=== PATIENT | female | born 1935 | race Caucasian/White ===

== ENCOUNTER 2018-10-01 19:20 | Inpatient (IN) | payer OTHER, MEDICAID ==
[~2018-10-01] VITALS: Ht 157.5 cm; Wt 59.0 kg
[~2018-10-01 19:20] MED LIST: 0.45% NACL 1,000 ML BAG IV ONE; DEXAMETHASONE SOD PHOSPHATE 4 MG/ML VIAL IVP ONE; GLUCAGON,HUMAN RECOMBINANT 1 MG VIAL IV ONE; GLYCOPYRROLATE 0.2 MG/ML VIAL IJ ONE; INDOMETHACIN 50 MG SUPP.RECT RC ONE; MIDAZOLAM HCL 5 MG/5 ML VIAL IVP ONE; NEOSTIGMINE METHYLSULFATE 1 MG/ML, 10 ML VIAL IVP ONE; ONDANSETRON HCL 4 MG/2 ML VIAL IVP ONE; PROPOFOL 200MG/ 20ML VIAL (DIPRIVAN) IV ONE; ROCURONIUM BROMIDE 10 MG/ML (ZEMURON) IV ONE; SEVOFLURANE 15 MIN GAS INH ONE; fentaNYL CITRATE 250 MCG/5 ML AMP IV ONE
[2018-10-01 19:30] VITALS: BP_SYST 143
[2018-10-01 20:00] VITALS: BP_SYST 146
[2018-10-01 21:00] VITALS: BP_SYST 162
[2018-10-01] MEDS ORDERED: SSNOVOLOG SUBCUT (21:25)
[2018-10-01] MEDS ORDERED: LACT1CAP72 PO (21:25)
[2018-10-01] MEDS ORDERED: TORI15 IVP (21:25)
[2018-10-01] MEDS ORDERED: ONDANSETRON HCL 4 MG/2 ML VIAL IVP PRN (21:30)
[2018-10-01 22:00] VITALS: BP_SYST 155
[2018-10-01] MEDS ORDERED: ONDA4VIA52 IVP (22:26)
[2018-10-01] MEDS ORDERED: LEVO750T45 IVPB (22:26)
[2018-10-01] MEDS ORDERED: MEMA5TAB PO (22:26)
[2018-10-01] MEDS ORDERED: METO-442 PO (22:26)
[2018-10-01] MEDS ORDERED: DOCU-144 PO (22:26)
[2018-10-01] MEDS ORDERED: PROI40 IV (22:26)
[2018-10-01] MEDS ORDERED: LEVO25TA2 PO (22:26)
[2018-10-01] MEDS ORDERED: ACET325T53 PO (22:26)
[2018-10-01] MEDS ORDERED: REGL10 IVP (22:26)
[2018-10-01] MEDS ORDERED: GUAI5SYR PO (22:26)
[2018-10-01] MEDS ORDERED: HYDR0.5S2 IVP (22:26)
[2018-10-01] MEDS ORDERED: METR500T IVPB (22:26)
[2018-10-01] MEDS ORDERED: GUAI100S14 PO (22:26)
[2018-10-01] MEDS ORDERED: MAGN2PIG IV (22:26)
[2018-10-01] MEDS ORDERED: OXYB5TAB11 PO (22:26)
[2018-10-01] MEDS ORDERED: PROP10DR2 EACH EYE (22:26)
[2018-10-01] MEDS ORDERED: LISI-600 PO (22:26)
[2018-10-01] MEDS ORDERED: HYDR-4272 PO (22:26)
[2018-10-01] MEDS: PANTOPRAZOLE SODIUM 40 MG/VIAL (PROTONIX) IVP SCH (22:31)
[2018-10-01] MEDS: KCL 20 mEq in 0.45% NS 1000 mL 1,000 ML IV SCH (22:32)
[2018-10-01] MEDS ORDERED: PANTOPRAZOLE SODIUM 40 MG/VIAL (PROTONIX) ONE (22:36)
[2018-10-01 23:00] VITALS: BP_SYST 161
[2018-10-02] VITALS (26 sets, daily range): BP systolic 75–179
[2018-10-02] MEDS ORDERED: CAT.1 PO (00:07)
[2018-10-02] MEDS ORDERED: hydrALAZINE HCL 20 MG/ML VIAL IVP PRN (01:00)
[2018-10-02] MEDS ORDERED: hydrALAZINE HCL 20 MG/ML VIAL ONE ×2 (01:00→11:37)
[2018-10-02 06:34] LABS: INR 1.4 (0.8-1.2); PROTHROMBIN TIME 14.3 SECS (9.5-12.5)
[2018-10-02 06:41] LABS: BASOPHILS % (AUTO) 0.1 % (0.0-2.0); EOSINOPHILS # (AUTO) 0.3 K/uL (0.0-0.4); EOSINOPHILS % (AUTO) 2.9 % (0.0-4.0); HEMATOCRIT 33.7 % (36-48); HEMOGLOBIN 10.9 g/dL (12.0-16.0); LYMPHOCYTES # (AUTO) 0.7 K/uL (1.0-5.5); LYMPHOCYTES % (AUTO) 7.8 % (20.5-51.5); MEAN CORPUSCULAR HEMOGLOBIN 28 pg (27-31); MEAN CORPUSCULAR HGB CONC 32 % (32-36); MEAN CORPUSCULAR VOLUME 88 fL (79.0-98.0); MONOCYTES # (AUTO) 0.8 K/uL (0.0-1.0); MONOCYTES % (AUTO) 8.9 % (1.7-9.3); NEUTROPHILS # (AUTO) 6.8 K/uL (1.8-7.7); NEUTROPHILS % (AUTO) 80.3 % (40.0-70.0); PLATELET COUNT (AUTO) 257 K/uL (130-430); RED BLOOD CELL COUNT(AUTO) 3.85 MIL/uL (4.2-6.2); RED CELL DISTRIBUTION WIDTH 13.3 % (9.0-15.0); WHITE BLOOD COUNT (AUTO) 8.6 K/uL (4.8-10.8)
[2018-10-02 06:42] LABS: ALANINE AMINOTRANSFERASE 31 U/L (12-78); ALBUMIN 2.1 g/dL (3.4-4.8); ANION GAP 6 (5-15); ASPARTATE AMINOTRANSFERASE 27 U/L (10-37); CALCIUM 7.9 mg/dL (8.4-11.0); CHLORIDE 106 mmol/L (98-107); CREATININE 0.96 mg/dL (0.55-1.30); GLUCOSE 87 mg/dL (70-99); LIPASE 877 U/L (73-393); PHOSPHORUS 2.2 mg/dL (2.7-4.5); POTASSIUM 3.8 mmol/L (3.5-5.1); SODIUM SERUM 134 mmol/L (136-145); TOTAL BILIRUBIN 0.9 mg/dL (0.0-1.0); UREA NITROGEN, BLOOD 35 mg/dL (8-21)
[2018-10-02] MEDS ORDERED: INDOMETHACIN 50 MG SUPP.RECT RC ONE (08:30)
[2018-10-02] MEDS ORDERED: IOHEXOL 50 ML IV ONE (08:51)
[2018-10-02] MEDS: PANTOPRAZOLE SODIUM 40 MG/VIAL (PROTONIX) IVP SCH ×2 (09:00→20:31)
[2018-10-02] MEDS ORDERED: 0.45% NACL 1,000 ML IV SCH (10:51)
[2018-10-02] MEDS ORDERED: MEPERIDINE HCL/PF 50 MG/ML AMP IVP PRN ×2 (11:00)
[2018-10-02] MEDS ORDERED: METOCLOPRAMIDE HCL 10 MG/2 ML VIAL IVP PRN (11:00)
[2018-10-02] MEDS ORDERED: MEPERIDINE HCL/PF 25 MG/ML DISP.SYRIN IVP PRN (11:00)
[2018-10-02] MEDS ORDERED: NALOXONE HCL 0.4 MG/ML AMP (NARCAN) ONE (11:35)
[2018-10-02] MEDS ORDERED: LABETALOL 100 MG/ 20ML VIAL ONE (11:47)
[2018-10-02] MEDS ORDERED: ATROPINE SULFATE 1 MG/10 ML SYRINGE IVP ONE ×2 (12:30→14:03)
[2018-10-02] MEDS: LR 1,000 ML IV SCH ×2 (13:00→20:25)
[2018-10-02] MEDS ORDERED: NS 500 ML IV ONE (13:00)
[2018-10-02] MEDS: INSULIN REGULAR, HUMAN 100 UNITS/ML, 10 ML VIAL (novoLIN R) SUBCUT PRN (13:32)
[2018-10-02] MEDS ORDERED: NOREPINEPHRINE BITARTRATE 4 MG in NS 246 ML IV PRN (13:45)
[2018-10-02] MEDS: KCL 20 mEq in 0.45% NS 1000 mL 1,000 ML IV SCH (14:09)
[2018-10-02] MEDS ORDERED: MORPHINE 4 MG/ML INJ. SYRINGE IVP PRN (14:30)
[2018-10-02] MEDS ORDERED: DIGOXIN 0.5 MG/2 ML AMP IVP ONE (16:15)
[2018-10-02] MEDS: LORazepam 2 MG/ML VIAL IVP PRN ×2 (17:02→22:28)
[2018-10-02] MEDS ORDERED: ALBUMIN HUMAN 5% 250 ML IV ONE (18:00)
[2018-10-02] MEDS ORDERED: HYDROCORTISONE SOD SUCC 100 MG/2 ML VIAL IVP ONE (18:30)
[2018-10-02] MEDS: metroNIDAZOLE 500 mg/NS 100 ML IV SCH ×2 (18:38→23:51)
[2018-10-02] MEDS: CEFEPIME 1 GM in D5W 50 ML IV SCH (20:30)
[2018-10-03] VITALS (33 sets, daily range): BP systolic 102–174
[2018-10-03] MEDS: LORazepam 2 MG/ML VIAL IVP PRN ×4 (01:27→21:50)
[2018-10-03] MEDS: HYDROCORTISONE SOD SUCC 100 MG/2 ML VIAL IVP SCH ×3 (05:26→21:27)
[2018-10-03] MEDS: metroNIDAZOLE 500 mg/NS 100 ML IV SCH ×4 (05:26→23:32)
[2018-10-03 06:04] LABS: ANION GAP 12 (5-15); CALCIUM 7.4 mg/dL (8.4-11.0); CHLORIDE 105 mmol/L (98-107); CREATININE 1.17 mg/dL (0.55-1.30); GLUCOSE 97 mg/dL (70-99); POTASSIUM 4.4 mmol/L (3.5-5.1); SODIUM SERUM 136 mmol/L (136-145); UREA NITROGEN, BLOOD 38 mg/dL (8-21)
[2018-10-03 06:21] LABS: FREE T4 (FREE THYROXINE) 1.2 ng/dl (0.8-1.5); THYROID STIMULATING HORMONE 0.89 uIu/mL (0.36-3.74)
[2018-10-03 08:13] LABS: ALBUMIN 2.2 g/dL (3.4-4.8); BILIRUBIN,DIRECT 0.4 mg/dL (0.0-0.3); TOTAL BILIRUBIN 0.9 mg/dL (0.0-1.0)
[2018-10-03] MEDS: PANTOPRAZOLE SODIUM 40 MG/VIAL (PROTONIX) IVP SCH ×2 (08:53→20:45)
[2018-10-03] MEDS: CEFEPIME 1 GM in D5W 50 ML IV SCH ×2 (08:53→20:45)
[2018-10-03] MEDS: LR 1,000 ML IV SCH (08:55)
[2018-10-03] MEDS: SODIUM BICARBONATE 8.4% JECT 100 MEQ in D5W 1,000 ML IV SCH (11:33)
[2018-10-03] MEDS: INSULIN REGULAR, HUMAN 100 UNITS/ML, 10 ML VIAL (novoLIN R) SUBCUT PRN ×2 (18:14→23:46)
[2018-10-04] VITALS (31 sets, daily range): BP systolic 120–199
[2018-10-04] MEDS: SODIUM BICARBONATE 8.4% JECT 100 MEQ in D5W 1,000 ML IV SCH ×2 (01:26→17:36)
[2018-10-04] MEDS: LORazepam 2 MG/ML VIAL IVP PRN (01:31)
[2018-10-04 05:35] LABS: BASOPHILS # (AUTO) 0.3 K/uL (0.0-0.2); BASOPHILS % (AUTO) 1.8 % (0.0-2.0); EOSINOPHILS % (AUTO) 0.1 % (0.0-4.0); HEMATOCRIT 33.1 % (36-48); HEMOGLOBIN 10.8 g/dL (12.0-16.0); LYMPHOCYTES # (AUTO) 0.5 K/uL (1.0-5.5); LYMPHOCYTES % (AUTO) 2.9 % (20.5-51.5); MEAN CORPUSCULAR HEMOGLOBIN 28 pg (27-31); MEAN CORPUSCULAR HGB CONC 33 % (32-36); MEAN CORPUSCULAR VOLUME 86 fL (79.0-98.0); MONOCYTES # (AUTO) 0.5 K/uL (0.0-1.0); MONOCYTES % (AUTO) 3.2 % (1.7-9.3); NEUTROPHILS # (AUTO) 15.7 K/uL (1.8-7.7); PLATELET COUNT (AUTO) 304 K/uL (130-430); RED BLOOD CELL COUNT(AUTO) 3.87 MIL/uL (4.2-6.2); RED CELL DISTRIBUTION WIDTH 13.4 % (9.0-15.0)
[2018-10-04] MEDS: HYDROCORTISONE SOD SUCC 100 MG/2 ML VIAL IVP SCH ×3 (05:41→20:53)
[2018-10-04] MEDS: metroNIDAZOLE 500 mg/NS 100 ML IV SCH ×3 (05:41→18:28)
[2018-10-04 05:45] LABS: ANION GAP 8 (5-15); CALCIUM 7.6 mg/dL (8.4-11.0); CHLORIDE 105 mmol/L (98-107); CREATININE 1.19 mg/dL (0.55-1.30); GLUCOSE 259 mg/dL (70-99); POTASSIUM 3.4 mmol/L (3.5-5.1); SODIUM SERUM 135 mmol/L (136-145); UREA NITROGEN, BLOOD 31 mg/dL (8-21)
[2018-10-04] MEDS: INSULIN REGULAR, HUMAN 100 UNITS/ML, 10 ML VIAL (novoLIN R) SUBCUT PRN ×3 (05:53→17:40)
[2018-10-04 05:54] LABS: ALANINE AMINOTRANSFERASE 23 U/L (12-78); ASPARTATE AMINOTRANSFERASE 22 U/L (10-37); TOTAL BILIRUBIN 0.8 mg/dL (0.0-1.0)
[2018-10-04] MEDS: CEFEPIME 1 GM in D5W 50 ML IV SCH ×2 (08:29→20:53)
[2018-10-04] MEDS: PANTOPRAZOLE SODIUM 40 MG/VIAL (PROTONIX) IVP SCH ×2 (08:39→20:53)
[2018-10-04] MEDS ORDERED: POTASSIUM CHLORIDE 20 MEQ/PKT PACKET NG ONE (14:45)
[2018-10-04] MEDS ORDERED: LORazepam 2 MG/ML VIAL IVP PRN (15:45)
[2018-10-04] MEDS ORDERED: FUROSEMIDE 20 MG/2 ML VIAL IVP ONE (15:45)
[2018-10-04] MEDS: FLUCONAZOLE 100 mg/ NS 50 ML IV SCH (17:01)
[2018-10-04] MEDS: MORPHINE 4 MG/ML INJ. SYRINGE IVP PRN (22:24)
[2018-10-05] VITALS (30 sets, daily range): BP systolic 131–196
[2018-10-05] MEDS: metroNIDAZOLE 500 mg/NS 100 ML IV SCH ×4 (00:03→17:48)
[2018-10-05] MEDS: INSULIN REGULAR, HUMAN 100 UNITS/ML, 10 ML VIAL (novoLIN R) SUBCUT PRN ×4 (00:14→18:03)
[2018-10-05] MEDS: MORPHINE 4 MG/ML INJ. SYRINGE IVP PRN (03:13)
[2018-10-05 06:04] LABS: ANION GAP 7 (5-15); CALCIUM 7.3 mg/dL (8.4-11.0); CHLORIDE 101 mmol/L (98-107); CREATININE 1.07 mg/dL (0.55-1.30); GLUCOSE 275 mg/dL (70-99); POTASSIUM 3.6 mmol/L (3.5-5.1); SODIUM SERUM 135 mmol/L (136-145); UREA NITROGEN, BLOOD 30 mg/dL (8-21)
[2018-10-05 06:06] LABS: BASOPHILS # (AUTO) 0.2 K/uL (0.0-0.2); BASOPHILS % (AUTO) 1.5 % (0.0-2.0); EOSINOPHILS # (AUTO) 0.1 K/uL (0.0-0.4); EOSINOPHILS % (AUTO) 0.4 % (0.0-4.0); HEMATOCRIT 30.4 % (36-48); LYMPHOCYTES # (AUTO) 0.5 K/uL (1.0-5.5); LYMPHOCYTES % (AUTO) 3.8 % (20.5-51.5); MEAN CORPUSCULAR HEMOGLOBIN 28 pg (27-31); MEAN CORPUSCULAR HGB CONC 33 % (32-36); MEAN CORPUSCULAR VOLUME 87 fL (79.0-98.0); MONOCYTES # (AUTO) 0.6 K/uL (0.0-1.0); MONOCYTES % (AUTO) 4.2 % (1.7-9.3); NEUTROPHILS % (AUTO) 90.1 % (40.0-70.0); PLATELET COUNT (AUTO) 242 K/uL (130-430); RED BLOOD CELL COUNT(AUTO) 3.49 MIL/uL (4.2-6.2); RED CELL DISTRIBUTION WIDTH 13.1 % (9.0-15.0); WHITE BLOOD COUNT (AUTO) 14.4 K/uL (4.8-10.8)
[2018-10-05 06:12] LABS: ALANINE AMINOTRANSFERASE 17 U/L (12-78); ALBUMIN 1.7 g/dL (3.4-4.8); ASPARTATE AMINOTRANSFERASE 19 U/L (10-37); TOTAL BILIRUBIN 0.5 mg/dL (0.0-1.0)
[2018-10-05 06:26] LABS: HEMOGLOBIN 9.9 g/dL (12.0-16.0)
[2018-10-05] MEDS: HYDROCORTISONE SOD SUCC 100 MG/2 ML VIAL IVP SCH ×2 (08:59→21:07)
[2018-10-05] MEDS: PANTOPRAZOLE SODIUM 40 MG/VIAL (PROTONIX) IVP SCH ×2 (08:59→21:07)
[2018-10-05] MEDS: CEFEPIME 1 GM in D5W 50 ML IV SCH ×2 (09:00→21:07)
[2018-10-05] MEDS ORDERED: MORPHINE 4 MG/ML INJ. SYRINGE IVP PRN (14:45)
[2018-10-05] MEDS: ALBUMIN HUMAN 25% 50 ML IV SCH ×2 (14:59→21:07)
[2018-10-05] MEDS: 0.45% NACL 1,000 ML IV SCH (14:59)
[2018-10-05] MEDS ORDERED: FUROSEMIDE 20 MG/2 ML VIAL IVP ONE (15:30)
[2018-10-05] MEDS: FLUCONAZOLE 100 mg/ NS 50 ML IV SCH (16:51)
[2018-10-06] VITALS (17 sets, daily range): BP systolic 136–185
[2018-10-06] MEDS: metroNIDAZOLE 500 mg/NS 100 ML IV SCH ×5 (00:31→23:26)
[2018-10-06] MEDS: INSULIN REGULAR, HUMAN 100 UNITS/ML, 10 ML VIAL (novoLIN R) SUBCUT PRN ×5 (00:38→23:35)
[2018-10-06] MEDS: ALBUMIN HUMAN 25% 50 ML IV SCH (03:33)
[2018-10-06 05:49] LABS: BASOPHILS # (AUTO) 0.1 K/uL (0.0-0.2); BASOPHILS % (AUTO) 0.6 % (0.0-2.0); EOSINOPHILS % (AUTO) 0.3 % (0.0-4.0); HEMATOCRIT 30.7 % (36-48); LYMPHOCYTES # (AUTO) 0.6 K/uL (1.0-5.5); LYMPHOCYTES % (AUTO) 4.3 % (20.5-51.5); MEAN CORPUSCULAR HEMOGLOBIN 28 pg (27-31); MEAN CORPUSCULAR HGB CONC 32 % (32-36); MEAN CORPUSCULAR VOLUME 86 fL (79.0-98.0); MONOCYTES # (AUTO) 0.3 K/uL (0.0-1.0); MONOCYTES % (AUTO) 2.3 % (1.7-9.3); NEUTROPHILS % (AUTO) 92.5 % (40.0-70.0); PLATELET COUNT (AUTO) 230 K/uL (130-430); RED BLOOD CELL COUNT(AUTO) 3.57 MIL/uL (4.2-6.2); RED CELL DISTRIBUTION WIDTH 13.6 % (9.0-15.0)
[2018-10-06 06:02] LABS: ANION GAP 7 (5-15); CALCIUM 7.5 mg/dL (8.4-11.0); CHLORIDE 97 mmol/L (98-107); CREATININE 0.94 mg/dL (0.55-1.30); GLUCOSE 203 mg/dL (70-99); POTASSIUM 3.6 mmol/L (3.5-5.1); SODIUM SERUM 138 mmol/L (136-145); UREA NITROGEN, BLOOD 26 mg/dL (8-21)
[2018-10-06] MEDS: PANTOPRAZOLE SODIUM 40 MG/VIAL (PROTONIX) IVP SCH ×2 (08:18→21:09)
[2018-10-06] MEDS: HYDROCORTISONE SOD SUCC 100 MG/2 ML VIAL IVP SCH (08:18)
[2018-10-06] MEDS: CEFEPIME 1 GM in D5W 50 ML IV SCH ×2 (08:19→21:08)
[2018-10-06] MEDS ORDERED: METOPROLOL TARTRATE 25 MG TABLET NG ONE (10:00)
[2018-10-06] MEDS ORDERED: ENALAPRILAT DIHYDRATE 1.25 MG/ML VIAL IVP PRN (10:00)
[2018-10-06] MEDS: 0.45% NACL 1,000 ML IV SCH (12:10)
[2018-10-06] MEDS: FLUCONAZOLE 100 mg/ NS 50 ML IV SCH (16:52)
[2018-10-06] MEDS: METOPROLOL TARTRATE 25 MG TABLET NG SCH (21:08)
[2018-10-07] MEDS: 0.45% NACL 1,000 ML IV SCH (01:47)
[2018-10-07 03:47] VITALS: BP_SYST 141
[2018-10-07] MEDS: metroNIDAZOLE 500 mg/NS 100 ML IV SCH ×2 (05:26→11:10)
[2018-10-07] MEDS: INSULIN REGULAR, HUMAN 100 UNITS/ML, 10 ML VIAL (novoLIN R) SUBCUT PRN ×2 (05:30→11:17)
[2018-10-07 07:09] LABS: ANION GAP 3 (5-15); CALCIUM 7.6 mg/dL (8.4-11.0); CHLORIDE 96 mmol/L (98-107); CREATININE 0.87 mg/dL (0.55-1.30); GLUCOSE 190 mg/dL (70-99); POTASSIUM 3.2 mmol/L (3.5-5.1); SODIUM SERUM 136 mmol/L (136-145); UREA NITROGEN, BLOOD 24 mg/dL (8-21)
[2018-10-07 07:16] LABS: ALANINE AMINOTRANSFERASE 23 U/L (12-78); ALBUMIN 2.4 g/dL (3.4-4.8); ASPARTATE AMINOTRANSFERASE 35 U/L (10-37); TOTAL BILIRUBIN 0.7 mg/dL (0.0-1.0)
[2018-10-07 07:28] LABS: BASOPHILS % (AUTO) 0.1 % (0.0-2.0); EOSINOPHILS # (AUTO) 0.1 K/uL (0.0-0.4); EOSINOPHILS % (AUTO) 0.9 % (0.0-4.0); HEMATOCRIT 32.4 % (36-48); HEMOGLOBIN 10.6 g/dL (12.0-16.0); LYMPHOCYTES # (AUTO) 0.7 K/uL (1.0-5.5); LYMPHOCYTES % (AUTO) 4.6 % (20.5-51.5); MEAN CORPUSCULAR HEMOGLOBIN 28 pg (27-31); MEAN CORPUSCULAR HGB CONC 33 % (32-36); MEAN CORPUSCULAR VOLUME 86 fL (79.0-98.0); MONOCYTES # (AUTO) 0.5 K/uL (0.0-1.0); MONOCYTES % (AUTO) 3.4 % (1.7-9.3); PLATELET COUNT (AUTO) 246 K/uL (130-430); RED BLOOD CELL COUNT(AUTO) 3.76 MIL/uL (4.2-6.2); RED CELL DISTRIBUTION WIDTH 13.4 % (9.0-15.0); WHITE BLOOD COUNT (AUTO) 14.3 K/uL (4.8-10.8)
[2018-10-07] MEDS: PANTOPRAZOLE SODIUM 40 MG/VIAL (PROTONIX) IVP SCH (08:05)
[2018-10-07] MEDS: METOPROLOL TARTRATE 25 MG TABLET NG SCH (08:06)
[2018-10-07] MEDS: CEFEPIME 1 GM in D5W 50 ML IV SCH (08:06)
[2018-10-07 08:12] VITALS: BP_SYST 172
[2018-10-07] MEDS ORDERED: POTASSIUM CHLORIDE 20 MEQ/PKT PACKET PO ONE (09:15)
[2018-10-07] MEDS ORDERED: LISINOPRIL 10 MG TABLET (PRINIVIL) PO ONE (10:00)
[2018-10-07 11:25] VITALS: BP_SYST 132
[2018-10-07 11:37] VITALS: BP_SYST 145
[2018-10-08] MEDS ORDERED: LISINOPRIL 10 MG TABLET (PRINIVIL) PO SCH (09:00)
== END 2018-10-07 12:40 | DRG 393 ==
LOC: SIC 19:20 → STU 10-06 14:29
PROVIDERS: ADMIT Family Medicine; ATTEND Family Medicine
PROC: 5A1945Z Respiratory Ventilation, 24-96 Consecutive Hours (ICD-10-PCS; 2018-10-01)
PROC: 0F7D8DZ Dilation of Pancreatic Duct with Intraluminal Device, Via Natural or Artificial Opening Endoscopic (ICD-10-PCS; 2018-10-02)
PROC: BF141ZZ Fluoroscopy of Gallbladder, Bile Ducts and Pancreatic Ducts using Low Osmolar Contrast (ICD-10-PCS; 2018-10-02)
PROC: 0F798DZ Dilation of Common Bile Duct with Intraluminal Device, Via Natural or Artificial Opening Endoscopic (ICD-10-PCS; principal; 2018-10-02 09:00)
DX: K91.89 Other postprocedural complications and disorders of digestive system (principal); J96.00 Acute respiratory failure, unspecified whether with hypoxia or hypercapnia; E43 Unspecified severe protein-calorie malnutrition; I47.1 Supraventricular tachycardia; I24.8 Other forms of acute ischemic heart disease; S36.13XA Injury of bile duct, initial encounter; Y83.8 Other surgical procedures as the cause of abnormal reaction of the patient, or of later complication, without mention of misadventure at the time of the procedure; K83.8 Other specified diseases of biliary tract; E11.9 Type 2 diabetes mellitus without complications; E03.9 Hypothyroidism, unspecified; F03.90 Unspecified dementia, unspecified severity, without behavioral disturbance, psychotic disturbance, mood disturbance, and anxiety; I10 Essential (primary) hypertension; I48.91 Unspecified atrial fibrillation; F32.9 Major depressive disorder, single episode, unspecified; I95.9 Hypotension, unspecified; X58.XXXA Exposure to other specified factors, initial encounter; D64.9 Anemia, unspecified; Z68.23 Body mass index [BMI] 23.0-23.9, adult; Y92.89 Other specified places as the place of occurrence of the external cause; Z90.49 Acquired absence of other specified parts of digestive tract; Y93.89 Activity, other specified; Y99.8 Other external cause status
CPT/HCPCS: 36415; 36600; 71045; 74018; 76000; 80048; 80053; 80076; 82803-TC; 82962; 83690-TC; 83735-TC; 84100-TC; 84439; 84443-TC; 84484; 85025; 85610-TC; 85730-TC; 87070-TC; 87081; 87086; 87205-TC; 92610-GN; 93005; 94002; 94003; 94640; C1769; C9113; G0378; J0360; J0461; J0692; J1100; J1160; J1450; J1610; J1720; J1815; J1940; J2060; J2250; J2270; J2310; J2405; J2704; J2710; J3010; J3480; J3490; J7030; J7040; J7050; J7060; J7120; P9041; P9046; Q9967

== ENCOUNTER 2019-10-05 19:32 | Inpatient (IN) | payer OTHER, MEDICAID ==
[~2019-10-05] VITALS: Ht 165.1 cm; Wt 51.7 kg
[~2019-10-05 19:32] MED LIST changes: -0.45% NACL 1,000 ML BAG IV ONE; +ACET325T53 PO; +CAT.1 PO; -DEXAMETHASONE SOD PHOSPHATE 4 MG/ML VIAL IVP ONE; +DOCU-144 PO; -GLUCAGON,HUMAN RECOMBINANT 1 MG VIAL IV ONE; -GLYCOPYRROLATE 0.2 MG/ML VIAL IJ ONE; +GUAI100S14 PO; +GUAI5SYR PO; +HYDR-4272 PO; +HYDR0.5S2 IVP; -INDOMETHACIN 50 MG SUPP.RECT RC ONE; +LACT1CAP72 PO; +LEVO25TA2 PO; +LEVO750T45 IVPB; +LISI-600 PO; +MAGN2PIG IV; +MEMA5TAB PO; +METO-442 PO; +METR500T IVPB; -MIDAZOLAM HCL 5 MG/5 ML VIAL IVP ONE; -NEOSTIGMINE METHYLSULFATE 1 MG/ML, 10 ML VIAL IVP ONE; +ONDA4VIA52 IVP; -ONDANSETRON HCL 4 MG/2 ML VIAL IVP ONE; +OXYB5TAB11 PO; +PROI40 IV; +PROP10DR2 EACH EYE; -PROPOFOL 200MG/ 20ML VIAL (DIPRIVAN) IV ONE; +REGL10 IVP; -ROCURONIUM BROMIDE 10 MG/ML (ZEMURON) IV ONE; -SEVOFLURANE 15 MIN GAS INH ONE; +SSNOVOLOG SUBCUT; +TORI15 IVP; -fentaNYL CITRATE 250 MCG/5 ML AMP IV ONE
[2019-10-05 19:42] VITALS: BP_SYST 162
--- NOTE | 2019-10-05 19:49 | NUR ---
Placed in room 07 . Placed on executive producer, blood pressure machine and pulse oximeter. To gown for exam. Side rails up.
--- NOTE | 2019-10-05 19:58 | NUR ---
ER Dr. Esquivel at bedside examining patient.
--- NOTE | 2019-10-05 20:10 | NUR ---
Patient AAO x 3 BIB BLS from [facility] for complaints of generalized weakness, body aches, and cough x 2 days. Denies pain at this time. Patient was given cough medication, and she reports facial redness. No redness is noted at this time. History of DM2, dementia, hypothyroidism, muscle weakness, OA, HTN, and depression. Even chest rise and fall with respirations but frequent episodes of cough. Will continue to monitor.
--- NOTE | 2019-10-05 20:28 | NUR ---
senior technologist at bedside for portable CXR.
[2019-10-05 20:47] LABS: BASOPHILS % (AUTO) 0.2 % (0.0-2.0); EOSINOPHILS # (AUTO) 0.1 K/uL (0.0-0.4); EOSINOPHILS % (AUTO) 1.2 % (0.0-4.0); HEMATOCRIT 36.7 % (36-48); HEMOGLOBIN 11.8 g/dL (12.0-16.0); LYMPHOCYTES # (AUTO) 1.4 K/uL (1.0-5.5); LYMPHOCYTES % (AUTO) 12.3 % (20.5-51.5); MEAN CORPUSCULAR HEMOGLOBIN 28 pg (27-31); MEAN CORPUSCULAR HGB CONC 32 % (32-36); MEAN CORPUSCULAR VOLUME 86 fL (79.0-98.0); MONOCYTES # (AUTO) 0.7 K/uL (0.0-1.0); MONOCYTES % (AUTO) 6.3 % (1.7-9.3); PLATELET COUNT (AUTO) 321 K/uL (130-430); RED BLOOD CELL COUNT(AUTO) 4.27 MIL/uL (4.2-6.2); RED CELL DISTRIBUTION WIDTH 13.8 % (9.0-15.0); WHITE BLOOD COUNT (AUTO) 11.2 K/uL (4.8-10.8)
[2019-10-05 20:56] LABS: ANION GAP 6 (5-15); CALCIUM 8.6 mg/dL (8.4-11.0); CHLORIDE 97 mmol/L (98-107); CREATININE 1.23 mg/dL (0.55-1.30); GLUCOSE 151 mg/dL (70-99); POTASSIUM 4.2 mmol/L (3.5-5.1); SODIUM SERUM 134 mmol/L (136-145); UREA NITROGEN, BLOOD 41 mg/dL (8-21)
[2019-10-05 21:02] LABS: ALANINE AMINOTRANSFERASE 16 U/L (12-78); ALBUMIN 2.7 g/dL (3.4-4.8); ASPARTATE AMINOTRANSFERASE 12 U/L (10-37); TOTAL BILIRUBIN 0.6 mg/dL (0.0-1.0)
--- NOTE | 2019-10-05 21:58 | NUR ---
#14 FR straight catheter with use of sterile technique. Immediate return of 60 mL yellow cloudy urine noted. Bedside drainage bag placed below level of bladder. Urine sample collected and sent to lab. Pt tolerated procedure well.
[2019-10-05 22:17] LABS: BILIRUBIN,URINE NEGATIVE (NEGATIVE); BLOOD, URINE 3+ (NEGATIVE); COLOR,URINE YELLOW (YELLOW); GLUCOSE,URINE NEGATIVE (NEGATIVE); KETONES,URINE NEGATIVE (NEGATIVE); LEUKOCYTE ESTERASE ,URINE 3+ (NEGATIVE); NITRITE, URINE NEGATIVE (NEGATIVE); PROTEIN URINE 1+ (NEGATIVE); UROBILINOGEN,URINE 0.2 (0.2-1.0)
[2019-10-05 22:20] LABS: CLARITY/URINE HAZY (CLEAR)
[2019-10-05 22:24] LABS: BACTERIA,URINE MANY /HPF (None Seen); MUCUS,URINE None Seen /LPF (None Seen); RBC,URINE 20-50 /HPF (0-3); WBC,URINE >100 /HPF (0-3)
[2019-10-05] MEDS ORDERED: LEVOFLOXACIN 500 MG/D5W 100 ML IV ONE (22:30)
--- NOTE | 2019-10-05 22:55 | NUR ---
#18 gauge angiocatheter placed to R antecubital. Use of asceptic technique. Tegaderm placed over site. Blood return noted. Flushed with 10 mL of normal saline. No evidence of infiltration noted. Patient tolerated well.
[2019-10-05] MEDS ORDERED: IPRATROPIUM BROM 0.5 MG/2.5 ML VIAL.NEB (ATROVENT) INH PRN (23:15)
[2019-10-05] MEDS ORDERED: ALBUTEROL SULFATE 0.083% 2.5 MG/3 ML VIAL.NEB INH PRN (23:15)
[2019-10-05] MEDS ORDERED: ONDANSETRON HCL 4 MG/2 ML VIAL IVP PRN ×2 (23:15)
[2019-10-05] MEDS ORDERED: guaiFENesin 200 MG/10 ML UDC PO PRN (23:15)
[2019-10-05] MEDS ORDERED: DEXTROSE 50% JECT 50 ML DISP.SYRIN IVP PRN (23:15)
[2019-10-05] MEDS ORDERED: ACETAMINOPHEN 325 MG TABLET PO PRN (23:15)
--- NOTE | 2019-10-05 23:24 | NUR ---
Patient will be admitted to care of Dr. Jimenez. Admitted to Telemetry unit. Will go to room 106B. Belongings list completed. Complete and up to date summary report printed. SBAR report to be given at bedside with opportunity for questions.
--- NOTE | 2019-10-05 23:35 | NUR ---
ADMISSION NOTE Received patient from ER via jaime, received report from JOSE LUIS BISWAS. Patient admitted with diagnosis of UTI/GENERAL WEAKNESS. Patient oriented to hospital routine, call light, toileting and safety-patient verbalized understanding.
--- NOTE | 2019-10-05 23:40 | NUR ---
OPENING NOTES Patient AOx1. Calm and cooperative. Forgetful. No signs of respiratory distress noted. Breathing even and unlabored. Denies pain and discomfort at this time. On Levaquin from ER, infusing well. IV site, patency noted. SCD's attached and operating well. Needs attended. Bed locked and in lowest position. Call light within reach. 3x side rails up. Safety precautions in place. Bed alarm on. Will continue to monitor patient.
[2019-10-05 23:43] VITALS: BP_SYST 142
[2019-10-06] VITALS (8 sets, daily range): BP systolic 130–152
[2019-10-06] MEDS: 0.45% NACL 1,000 ML IV SCH ×2 (00:03→12:54)
[2019-10-06] MEDS ORDERED: AMIKACIN SULFATE 400 MG in D5W 100 ML IV SCH (00:30)
--- NOTE | 2019-10-06 02:59 | NUR ---
RN ROUNDS Patients sleeping at this time. No signs of respiratory distress and discomfort noted. Breathing even and unlabored. IVF, infusing well. Safety precautions in place. Will continue to monitor patient.
[2019-10-06] MEDS ORDERED: AMIKACIN SULFATE 500 MG/2 ML VIAL ONE (05:10)
--- NOTE | 2019-10-06 06:07 | NUR ---
Nutrition Update Richard Scale 15 noted. Pt admitted for UTI, Generalized Weakness Diet: Cardiac BMI: 19.1 kg/m2 RD to follow per nutrition care standards.
[2019-10-06] MEDS: LEVOTHYROXINE SODIUM 0.025 MG TABLET PO SCH (06:28)
[2019-10-06] MEDS: INSULIN LISPRO SLIDING SCALE 100 UNITS/ML VIAL (humaLOG) SUBCUT PRN ×2 (06:31→20:38)
--- NOTE | 2019-10-06 06:43 | NUR ---
CLOSING NOTES Patient asleep at this time. No signs of respiratory distress noted. Breathing even and unlabored. Denies pain and discomfort at this time. IV site, patency noted. Patient Synthroid medication due at 7am is not available, Charge nurse Dwain made aware, verbalized ''put medication not available. SCD's attached and operating well. Needs attended. Bed locked and in lowest position. Call light within reach. 3x side rails up. All needs met throughout the shift. Safety precautions in place. Bed alarm on. Will continue to monitor patient until endorse to oncoming shift nurse.
[2019-10-06] MEDS: HYDROcodone/ACETAMIN 5-325 MG TAB (NORCO/ VICODIN) PO PRN (08:55)
[2019-10-06] MEDS: OXYBUTYNIN CHLORIDE 5 MG TABLET PO SCH ×2 (09:37→20:31)
[2019-10-06] MEDS: DOCUSATE SODIUM 100 MG CAPSULE PO SCH (09:37)
[2019-10-06] MEDS: LISINOPRIL 20 MG TABLET PO SCH (09:37)
[2019-10-06] MEDS: MEMANTINE HCL 5 MG TABLET PO SCH ×2 (09:37→20:31)
[2019-10-06] MEDS: METOPROLOL TARTRATE 50 MG TABLET PO SCH ×2 (09:37→20:31)
[2019-10-06] MEDS: PANTOPRAZOLE SODIUM 40 MG/VIAL (PROTONIX) IV SCH ×2 (09:37→20:31)
[2019-10-06] MEDS ORDERED: SODIUM CL 3% FOR INHALATION 15 ML VIAL.NEB INH ONE (13:35)
--- NOTE | 2019-10-06 16:00 | NUR ---
RT NOTES PT DID NOT TOLERATE NEBULIZED HYPERTONIC SOLUTION. STATING TOO MUCH AIR. PT WITH DRY COUGH, UNFORTUNATELY PT UNABLE TO PROVIDE ANY SPUTUM SAMPLE AT THIS TIME. ZULAY CARDOZO NOTIIFIED.
--- NOTE | 2019-10-06 19:15 | NUR ---
change of shift.pt.presents quiescent affect;calm,resting.pt.presents iv access intact;patent iv fluids infusing. general status stable.respiratory status stable;unlabored@room air.call light/telephone w/in reach of the pt.
--- NOTE | 2019-10-06 20:00 | NUR ---
pt.assessed.v/s assessed;b/p values elevated;to review the [employer] med-list re;b/p medications.i have apprised the pt. that i may provide snacks/beverages w/in the shift.no requests posited@this hour.iv access intact;patent iv fluids infusing.pt.assessed for cleanliness.pt.repositioned.general status stable.respiratory status stable;unlabored.call light/telephone placed w/in reach of the pt.
--- NOTE | 2019-10-06 20:30 | NUR ---
i have assessed the blood glucose;value;188mg/dl.i have apprised the pt. of the blood glucose value and that i am to administer insulin coverage.
--- NOTE | 2019-10-06 21:00 | NUR ---
2100pmedications administered.pt.capable to ingests medications whole w/out difficulty.i have administered insulin;humalog;2-units. per the sliding scale parameters.no requests posited@this hour.
--- NOTE | 2019-10-06 22:00 | NUR ---
pt.assessed.pt.presents quiescent affect;calm,somnolent.pt.assessed for cleanliness.pt.repositioned.iv access intact; patent iv fluids infusing. no c/o pain,nausea.general status stable.respiratory status stable;unlabored.call light/telephone placed w/in reach of the pt.
--- NOTE | 2019-10-07 | NUR ---
pt.assessed.v/s assessed;values w/in normal limits.pt.assessed for cleanliness.pt.repositioned.pt.presents quiescent affect;calm,somnolent. iv access intact;patent;iv fluids infusing.general status stable.respiratory status stable;unlabored.call light/telephone placed w/in reach of the pt.
[2019-10-07] MEDS: 0.45% NACL 1,000 ML IV SCH ×3 (00:08→18:48)
[2019-10-07 01:53] VITALS: BP_SYST 132
--- NOTE | 2019-10-07 02:00 | NUR ---
pt.assessed.pt.assessed for cleanliness.pt.repositioned.pt.presents quiescent affect;calm,somnolent. iv access intact patent iv fluids infusing. general status stable.respiratory status stable.call light/telephone placed w/in reach of the pt.
--- NOTE | 2019-10-07 04:00 | NUR ---
pt.assessed.pt.presents quiescent affect;calm,somnolent.iv access intact;patent iv fluids infusing.pt.assessed for cleanliness.pt.repositioned. general statu stable.respiratory status stable;unlabored.call light/telephone placed w/in reach of the pt.
[2019-10-07] MEDS ORDERED: AMIKACIN SULFATE 350 MG in D5W 100 ML IV SCH (06:00)
[2019-10-07] MEDS: INSULIN LISPRO SLIDING SCALE 100 UNITS/ML VIAL (humaLOG) SUBCUT PRN ×4 (06:04→20:25)
[2019-10-07] MEDS: LEVOTHYROXINE SODIUM 0.025 MG TABLET PO SCH (06:06)
--- NOTE | 2019-10-07 06:36 | NUR ---
pt.assessed.pt.assessed for cleanliness.pt.cleaned/repositioned.i have changed the iv fluids bag.i have administered amikacin;abx;ivpb.0600a dose.i have assessed the blood glucose;value;161mg/dl.i have administered insulin;humalog; 2-units.no requests posited @this hour. general status stable.respiratory status stable;unlabored.call light/telephone placed w/in reach of the pt.
[2019-10-07 07:06] LABS: BASOPHILS % (AUTO) 0.2 % (0.0-2.0); EOSINOPHILS # (AUTO) 0.1 K/uL (0.0-0.4); HEMATOCRIT 35.1 % (36-48); HEMOGLOBIN 11.5 g/dL (12.0-16.0); LYMPHOCYTES # (AUTO) 1.1 K/uL (1.0-5.5); LYMPHOCYTES % (AUTO) 10.9 % (20.5-51.5); MEAN CORPUSCULAR HEMOGLOBIN 28 pg (27-31); MEAN CORPUSCULAR HGB CONC 33 % (32-36); MEAN CORPUSCULAR VOLUME 85 fL (79.0-98.0); MONOCYTES # (AUTO) 0.5 K/uL (0.0-1.0); MONOCYTES % (AUTO) 4.9 % (1.7-9.3); NEUTROPHILS # (AUTO) 8.5 K/uL (1.8-7.7); PLATELET COUNT (AUTO) 318 K/uL (130-430); RED BLOOD CELL COUNT(AUTO) 4.13 MIL/uL (4.2-6.2); RED CELL DISTRIBUTION WIDTH 13.6 % (9.0-15.0); WHITE BLOOD COUNT (AUTO) 10.2 K/uL (4.8-10.8)
[2019-10-07 07:33] LABS: ALANINE AMINOTRANSFERASE 11 U/L (12-78); ALBUMIN 2.2 g/dL (3.4-4.8); ANION GAP 7 (5-15); ASPARTATE AMINOTRANSFERASE 12 U/L (10-37); CALCIUM 8.1 mg/dL (8.4-11.0); CHLORIDE 98 mmol/L (98-107); CREATININE 1.04 mg/dL (0.55-1.30); GLUCOSE 197 mg/dL (70-99); POTASSIUM 4.4 mmol/L (3.5-5.1); SODIUM SERUM 131 mmol/L (136-145); TOTAL BILIRUBIN 0.6 mg/dL (0.0-1.0); UREA NITROGEN, BLOOD 24 mg/dL (8-21)
--- NOTE | 2019-10-07 07:35 | NUR ---
OPENING NOTES: RECEIVED PATIENT FROM CONGRESSIONAL ASSISTANT NURSE. PATIENT IS ASLEEP LAYING DOWN IN BED. NO SIGNS OF DISTRESS OR SHORTNESS OF BREATH NOTED. PATIENT IS TOLERATING OXYGEN AT ROOM AIR. IV SITE IS PATENT WITH NO SIGNS OF INFILTRATION NOTED. PATIENT IN STABLE CONDITION. SAFETY, FALL AND ASPIRATION PRECAUTIONS ARE IN PLACE. BED LOCKED IN LOWEST POSITION WITH CALL LIGHT IN REACH. WILL CONTINUE TO MONITOR PATIENT FOR ANY CHANGES.
[2019-10-07 08:18] VITALS: BP_SYST 136
[2019-10-07] MEDS: DOCUSATE SODIUM 100 MG CAPSULE PO SCH (08:43)
[2019-10-07] MEDS: LISINOPRIL 20 MG TABLET PO SCH (08:43)
[2019-10-07] MEDS: METOPROLOL TARTRATE 50 MG TABLET PO SCH ×2 (08:44→20:23)
[2019-10-07] MEDS: PANTOPRAZOLE SODIUM 40 MG/VIAL (PROTONIX) IV SCH ×2 (08:44→20:15)
[2019-10-07] MEDS: MEMANTINE HCL 5 MG TABLET PO SCH ×2 (08:44→20:15)
[2019-10-07] MEDS: OXYBUTYNIN CHLORIDE 5 MG TABLET PO SCH ×2 (08:44→20:15)
--- NOTE | 2019-10-07 10:32 | NUR ---
RN ROUNDS: PATIENT IS ASLEEP LAYING DOWN IN BED. NO SIGNS OF DISTRESS OR SHORTNESS OF BREATH NOTED. PATIENT IN STABLE CONDITION. WILL CONTINUE TO MONITOR PATIENT FOR ANY CHANGES.
[2019-10-07 12:30] VITALS: BP_SYST 170
[2019-10-07] MEDS: MEROPENEM 500 MG in NS 50 ML IV SCH ×2 (13:46→22:28)
[2019-10-07 16:01] VITALS: BP_SYST 189
--- NOTE | 2019-10-07 16:21 | NUR ---
RN ROUNDS: PATIENT IS AWAKE AND ALERT x3 LAYING DOWN IN BED. NO SIGNS OF DISTRESS OR SHORTNESS OF BREATH NOTED. PATIENT DENIES ANY PAIN AT THE MOMENT. PATIENT IN STABLE CONDITION. WILL CONTINUE TO MONITOR PATIENT FOR ANY CHANGES.
--- NOTE | 2019-10-07 18:44 | NUR ---
CLOSING NOTES: PATIENT IS AWAKE AND ALERT x2 LAYING DOWN IN BED. PATIENT DENIES ANY PAIN AT THE MOMENT. NO SIGNS OF DISTRESS OR SHORTNESS OF BREATH NOTED. PATIENT IS TOLERATING OXYGEN AT ROOM AIR. IV SITE IS PATENT WITH NO SIGNS OF INFILTRATION NOTED. PATIENT IN STABLE CONDITION. SAFETY, FALL AND ASPIRATION PRECAUTIONS REMAINED IN PLACE THROUGHOUT THE SHIFT. BED LOCKED IN LOWEST POSITION WITH CALL LIGHT IN REACH. WILL ENDORSE PATIENT CARE TO ONCOMING DIESEL ENGINE SPECIALIST NURSE.
--- NOTE | 2019-10-07 19:47 | NUR ---
Opening Note Received report from dayshift RN, patient is resting in bed, A/Ox2, patient is confused, reoriented patient to person, place, time, and event, no signs of acute distress, even and unlabored breathing on room air, IV to right AC in place and infusing well, no complaints of pain. Safety, fall, and aspiration precautions in place, bed locked and in lowest position, bed alarm on, three side rails up, call light with patient, will continue to monitor.
[2019-10-07 20:00] VITALS: BP_SYST 160
--- NOTE | 2019-10-07 20:25 | NUR ---
Blood Sugar Patient's blood sugar is 151. 2 units of Humalog insulin indicated per insulin sliding scale. Educated patient on medication uses and potential side effects, patient able to verbalize understanding. Administered medication per MD order, patient tolerated well. Patient is resting in bed, no signs of acute distress at this time. Safety and fall precautions in place, call light with patient, will continue to monitor.
--- NOTE | 2019-10-07 20:26 | NUR ---
Pain Patient complains of pain 3/10 to her head and back. PRN Tylenol indicated for mild pain. Educated patient on medication uses and potential side effects, patient able to verbalize understanding at this time. Administered medication per MD order. Patient tolerated well. All safety and fall precautions in place, call light with patient, will continue to monitor.
--- NOTE | 2019-10-07 22:40 | NUR ---
Incontinence care Patient voided. Incontinence care rendered by this RN. Patient is clean, dry, and repositioned. No signs of acute distress, all safety and fall precautions in place, call light with patient, will continue to monitor.
--- NOTE | 2019-10-08 00:21 | NUR ---
RN Rounds Patient is resting in bed, eyes closed, no signs of acute distress, tolerating room air, IV to right AC infusing well, no complaints of pain. Safety, fall, and aspiration precautions in place, call light with patient, will continue to monitor.
[2019-10-08 01:51] VITALS: BP_SYST 132
--- NOTE | 2019-10-08 02:08 | NUR ---
RN Rounds Patient is resting in bed, eyes closed asleep, no signs of acute distress, tolerating room air, IV to right AC infusing well. Safety, fall, and aspiration precautions in place, call light with patient, will continue to monitor.
[2019-10-08] MEDS ORDERED: LEVOTHYROXINE SODIUM 0.025 MG TABLET PO SCH (03:04)
--- NOTE | 2019-10-08 04:40 | NUR ---
RN Rounds Patient is resting in bed, no signs of acute distress, tolerating room air, IV to right AC infusing well, patient voided, provided incontinence care, patient is clean, dry and repositioned, patient tolerated well. Safety, fall, and aspiration precautions in place, call light with patient, will continue to monitor.
[2019-10-08] MEDS: MEROPENEM 500 MG in NS 50 ML IV SCH ×3 (05:05→21:41)
--- NOTE | 2019-10-08 05:39 | NUR ---
RN Rounds Patient is resting in bed, eyes closed asleep, tolerating room air, no signs of acute distress at this time, IV to right AC infusing well, no redness, no swelling, no infiltration noted. Safety, fall, and aspiration precautions in place, call light with patient, will continue to monitor.
[2019-10-08] MEDS: INSULIN LISPRO SLIDING SCALE 100 UNITS/ML VIAL (humaLOG) SUBCUT PRN (06:02)
[2019-10-08] MEDS: METOPROLOL TARTRATE 50 MG TABLET PO SCH ×2 (09:00→21:47)
[2019-10-08] MEDS: PANTOPRAZOLE SODIUM 40 MG/VIAL (PROTONIX) IV SCH ×2 (09:00→21:41)
[2019-10-08] MEDS: DOCUSATE SODIUM 100 MG CAPSULE PO SCH (09:00)
[2019-10-08] MEDS: LISINOPRIL 20 MG TABLET PO SCH (09:00)
[2019-10-08] MEDS: MEMANTINE HCL 5 MG TABLET PO SCH ×2 (09:00→21:47)
[2019-10-08] MEDS: OXYBUTYNIN CHLORIDE 5 MG TABLET PO SCH ×2 (09:00→21:47)
--- NOTE | 2019-10-08 11:17 | NUR ---
[phone]. SEE PAPER CHARTING.
[2019-10-08 12:00] VITALS: BP_SYST 151
--- NOTE | 2019-10-08 12:20 | NUR ---
RN ROUNDS: PATIENT IS AWAKE AND ALERT x3 LAYING DOWN IN BED. PATIENT DENIES ANY PAIN AT THE MOMENT. PATIENT IS TOLERATING OXYGEN ON ROOM AIR WITH NO SIGNS OF DISTRESS OR SHORTNESS OF BREATH NOTED. IV SITE IS PATENT WITH NO SIGNS OF INFILTRATION NOTED. PATIENT IN STABLE CONDITION. WILL CONTINUE TO MONITOR PATIENT FOR ANY CHANGES.
[2019-10-08] MEDS: 0.45% NACL 1,000 ML IV SCH ×2 (13:38→21:48)
--- NOTE | 2019-10-08 14:23 | NUR ---
RN ROUNDS: PATIENT IS AWAKE AND ALERT X2 LAYING DOWN IN BED. PATIENT DENIES ANY PAIN AT THE MOMENT. NO SIGNS OF DISTRESS OR SHORTNESS OF BREATH NOTED. PATIENT IN STABLE CONDITION. WILL CONTINUE TO MONITOR PATIENT FOR ANY CHANGES.
[2019-10-08 16:15] VITALS: BP_SYST 168
--- NOTE | 2019-10-08 18:45 | NUR ---
CLOSING NOTES: PATIENT IS AWAKE AND ALERT x2 LAYING DOWN IN BED. PATIENT DENIES ANY PAIN AT THE MOMENT. NO SIGNS OF DISTRESS OR SHORTNESS OF BREATH NOTED. PATIENT IS TOLERATING OXYGEN AT ROOM AIR. IV SITE IS PATENT WITH NO SIGNS OF INFILTRATION NOTED. PATIENT IN STABLE CONDITION. SAFETY, FALL, ASPIRATION AND CONTACT PRECAUTIONS REMAINED IN PLACE THROUGHOUT THE SHIFT. BED LOCKED IN LOWEST POSITION WITH CALL LIGHT IN REACH. WILL ENDORSE PATIENT CARE TO ONCOMING BOWLING BALL GRADER AND MARKER NURSE.
--- NOTE | 2019-10-08 19:50 | NUR ---
OPENING NOTES Received report from Yoselyn. Patient is resting in bed, awake, alert, oriented x 3, breathing evenly and nonlabored on room air. Patient has an IV on the right AC 20g, patent and benign, no s/s of infection or infiltration at this time, IVF running, patient is tolerating it well. Educated patient on plan of care, fall/safety/isolation precautions, call light system, patient stated understanding. Bed is locked, armed, and at lowest position, will continue to monitor.
[2019-10-08 20:30] VITALS: BP_SYST 145
--- NOTE | 2019-10-08 21:45 | NUR ---
MEDICATIONS/ROUNDS Patient is resting in bed, awake, breathing evenly and nonlabored on room air. Educated patient on medications, patient stated understanding. BS checked, no coverage needed. Administered medications, patient tolerated it well. No s/s of distress at this time, no other needs at this time. Fall/safety/aspiration/isolation precautions, will continue to monitor. Addendum: 10/09/19 at 0848 by Son Sheldon RN Spoke with Dr. Tony meza, aware of patient's isolation status and positive result for MDRO and E.coli of the urine.
--- NOTE | 2019-10-08 23:45 | NUR ---
ROUNDS Patient is resting in bed, eyes closed, breathing evenly and nonlabored on room air. No s/s of distress at this time, no other needs at this time. Fall/safety/aspiration/isolation precautions, will continue to monitor.
[2019-10-09] VITALS: BP_SYST 167
--- NOTE | 2019-10-09 01:30 | NUR ---
ROUNDS Patient is resting in bed, eyes closed, breathing evenly and nonlabored on room air. No s/s of distress at this time, no other needs at this time. Fall/safety/aspiration/isolation precautions.
[2019-10-09] MEDS: cloNIDine HCL 0.1 MG TABLET PO PRN ×2 (02:01→10:33)
--- NOTE | 2019-10-09 02:05 | NUR ---
MEDICATIONS/ROUNDS Patient is resting in bed, awake, breathing evenly and nonlabored on room air. Patient's SBP was over 60, educated patient on medication, patient stated understanding. Administered medications, patient tolerated it well. No other needs at this time. Fall/safety/aspiration/isolation precautions, will continue to monitor.
[2019-10-09 04:10] VITALS: BP_SYST 150
--- NOTE | 2019-10-09 04:15 | NUR ---
ROUNDS Patient is resting in bed, eyes closed, breathing evenly and nonlabored on room air. Vital signs stable. No s/s of distress at this time, no other needs at this time. Fall/safety/aspiration/isolation precautions, will continue to monitor.
[2019-10-09] MEDS: MEROPENEM 500 MG in NS 50 ML IV SCH ×3 (05:59→21:25)
[2019-10-09] MEDS: LEVOTHYROXINE SODIUM 0.05 MG TABLET PO SCH (05:59)
--- NOTE | 2019-10-09 06:15 | NUR ---
CLOSING NOTES Patient is resting in bed, awake, breathing evenly and nonlabored on room air. Hygiene care performed. Educated patient on medications, patient stated understanding. BS checked, no coverage needed. Administered medications, patient tolerated it well. No s/s of distress at this time, no other needs at this time. Fall/safety/aspiration/isolation precautions. Will endorse care to morning shift RN.
[2019-10-09] MEDS: HYDROcodone/ACETAMIN 5-325 MG TAB (NORCO/ VICODIN) PO PRN (06:59)
--- NOTE | 2019-10-09 07:35 | NUR ---
RECEIVED PATIENT IN BED. ALERT AWAKE X 3. LUNGS BILATERALLY DIMINISHED BREATH SOUNDS. ABDOMEN SOFT AND NON DISTENDED. HAS IV ACCESS ON THE RIGHT AC #20 WITH IV FLUIDS 1/2 NS AT 60CC/HR INFUSING ON WELL. TURN TO SIDES. NO SOB NOR PAIN NOTED. INSTRUCTED PATIENT TO CALL FOR ASSISTTANCE. INCONTINET OF URINE AND BOWEL.
[2019-10-09 07:59] LABS: ALANINE AMINOTRANSFERASE 14 U/L (12-78); ALBUMIN 2.2 g/dL (3.4-4.8); ANION GAP 4 (5-15); ASPARTATE AMINOTRANSFERASE 15 U/L (10-37); CALCIUM 8.6 mg/dL (8.4-11.0); CHLORIDE 100 mmol/L (98-107); CREATININE 1.11 mg/dL (0.55-1.30); GLUCOSE 152 mg/dL (70-99); POTASSIUM 4.4 mmol/L (3.5-5.1); SODIUM SERUM 130 mmol/L (136-145); TOTAL BILIRUBIN 0.5 mg/dL (0.0-1.0); UREA NITROGEN, BLOOD 23 mg/dL (8-21)
--- NOTE | 2019-10-09 08:00 | NUR ---
REFUSED TO EAT BREAKFAST. HAD ENSURE ABOUT 1/2 OF IT. ENCOURAGE TO EAT, BUT SAID NO.
[2019-10-09 08:05] LABS: BASOPHILS % (AUTO) 0.3 % (0.0-2.0); EOSINOPHILS # (AUTO) 0.2 K/uL (0.0-0.4); HEMATOCRIT 36.6 % (36-48); HEMOGLOBIN 11.9 g/dL (12.0-16.0); LYMPHOCYTES # (AUTO) 1.3 K/uL (1.0-5.5); LYMPHOCYTES % (AUTO) 15.7 % (20.5-51.5); MEAN CORPUSCULAR HEMOGLOBIN 28 pg (27-31); MEAN CORPUSCULAR HGB CONC 33 % (32-36); MEAN CORPUSCULAR VOLUME 85 fL (79.0-98.0); MONOCYTES # (AUTO) 0.5 K/uL (0.0-1.0); MONOCYTES % (AUTO) 6.7 % (1.7-9.3); NEUTROPHILS % (AUTO) 75.3 % (40.0-70.0); PLATELET COUNT (AUTO) 326 K/uL (130-430); RED BLOOD CELL COUNT(AUTO) 4.29 MIL/uL (4.2-6.2); RED CELL DISTRIBUTION WIDTH 13.9 % (9.0-15.0)
[2019-10-09 08:30] VITALS: BP_SYST 195
[2019-10-09] MEDS: DOCUSATE SODIUM 100 MG CAPSULE PO SCH (09:39)
[2019-10-09] MEDS: PANTOPRAZOLE SODIUM 40 MG/VIAL (PROTONIX) IV SCH ×2 (09:39→21:17)
[2019-10-09] MEDS: METOPROLOL TARTRATE 50 MG TABLET PO SCH ×2 (09:42→21:18)
[2019-10-09] MEDS: MEMANTINE HCL 5 MG TABLET PO SCH ×2 (09:43→21:19)
--- NOTE | 2019-10-09 10:00 | NUR ---
DUE MEDICATION GIVEN ORDERED.
[2019-10-09] MEDS: LISINOPRIL 20 MG TABLET PO SCH ×2 (10:33→21:18)
[2019-10-09] MEDS: OXYBUTYNIN CHLORIDE 5 MG TABLET PO SCH ×2 (10:33→21:29)
[2019-10-09] MEDS ORDERED: ALPRAZolam 0.25 MG TABLET PO PRN (11:45)
--- NOTE | 2019-10-09 11:45 | NUR ---
DR SALVADOR MADE AWARE PATIENT EAT 10 TO 15% OF FOOD, BIT ANXIOUS.
[2019-10-09] MEDS: 0.45% NACL 1,000 ML IV SCH (11:54)
[2019-10-09 12:00] VITALS: BP_SYST 147
--- NOTE | 2019-10-09 12:00 | NUR ---
HAD LUNCH ABOUT 15% OF FOOD TAKEN. MADE AWARE.
--- NOTE | 2019-10-09 12:15 | NUR ---
Principal Quality Engineer: met with pt. to conduct a DCPA. END USER SUPPORT SPECIALIST stated pt. is not comprehending as she asked pt. if she was wet. Pt. told her she was not, but allowed END USER SUPPORT SPECIALIST to check. When END USER SUPPORT SPECIALIST checked pt. was wet. BOWLING BALL MARKER introduced self to pt who was awake and verbal. Rn. Quiroz was working with pt. Gabriella stated pts. Cheri askew resides in [place]. and is pts. contact. Rn also stated pt. is only eating 10% and attending Dr. Jimenez has been notified. When asked, pt. did not know what hospital she was at. She confirmed her address, ([facility]) but stated she lives there with her niece also named Cheri. Pt. is confused and was not correct in her responses. BOWLING BALL MARKER was able to get info to complete a DCPA. BOWLING BALL MARKER will remain available as needed.
--- NOTE | 2019-10-09 12:30 | NUR ---
latest bs 128 mg/dl. no coverage given as ordered.
--- NOTE | 2019-10-09 14:00 | NUR ---
IV ANTIBIOTIC GIVEN AT THIS TIME.
--- NOTE | 2019-10-09 14:47 | NUR ---
Discharge Planning: DCP faxed pt referral to [facility] (f [phone] p [phone]) DCP to follow up.
--- NOTE | 2019-10-09 16:25 | NUR ---
TURN TO SIDES. MADE COMFORTABLE. AT THIS TIME.
[2019-10-09 16:38] VITALS: BP_SYST 126
--- NOTE | 2019-10-09 17:27 | NUR ---
latest bs 129 mg/dl. no coverage given at this time.
--- NOTE | 2019-10-09 18:51 | NUR ---
PATIENT STABLE. NO SOB NOR PAIN NOTED.
--- NOTE | 2019-10-09 19:09 | NUR ---
ENDORSED TO INCOMING NURSE ELMER BISWAS
[2019-10-09 20:00] VITALS: BP_SYST 115
--- NOTE | 2019-10-09 20:00 | NUR ---
RECEIVED PT IN BED V/S AND ASSESSMENT DONE SAME STABLE ,IV WITH FLUIDS INFUSING WELL,PM CARE GIVEN REPOSITIONED MADE COMFORTABLE,RESTING IN NO DISTRESS AT THIS TIME
--- NOTE | 2019-10-10 | NUR ---
REPOSITIONED MADE COMFORTABLE ,RESTING IN NO DISTRESS AT [facility] TIME
--- NOTE | 2019-10-10 04:00 | NUR ---
AM CARE GIVEN REPOSITIONED MADE COMFORTABLE, NO DISTRESS NOTED AT THIS TIME
[2019-10-10] MEDS: MEROPENEM 500 MG in NS 50 ML IV SCH ×2 (05:44→14:01)
[2019-10-10] MEDS: LEVOTHYROXINE SODIUM 0.05 MG TABLET PO SCH (05:45)
[2019-10-10 08:00] VITALS: BP_SYST 143
--- NOTE | 2019-10-10 08:00 | NUR ---
AM ASSESSMENT. PT ALERT, INCONTINENT OF BLADDER, GOOD PERINEAL HYGIENE PROVIDED, SKIN CLEAR, LINEN CHANGED, MADE PT DRY AND COMFORTABLE, TURNED TO HER SIDE, CALL LIGHT PLACED IN EASY REACH, ENCOURAGED PT TO CALL FOR ANY ASSISTANCE.
[2019-10-10] MEDS: DOCUSATE SODIUM 100 MG CAPSULE PO SCH (10:19)
[2019-10-10] MEDS: PANTOPRAZOLE SODIUM 40 MG/VIAL (PROTONIX) IV SCH ×2 (10:19→20:30)
[2019-10-10] MEDS: METOPROLOL TARTRATE 50 MG TABLET PO SCH ×2 (10:20→20:30)
[2019-10-10] MEDS: LISINOPRIL 20 MG TABLET PO SCH ×2 (10:20→20:31)
[2019-10-10] MEDS: MEMANTINE HCL 5 MG TABLET PO SCH ×2 (10:21→20:30)
[2019-10-10] MEDS: OXYBUTYNIN CHLORIDE 5 MG TABLET PO SCH ×2 (10:34→20:30)
[2019-10-10 12:00] VITALS: BP_SYST 169
--- NOTE | 2019-10-10 12:23 | NUR ---
DC Planning: Per [facility], the pt is financially approved, but still pending clinical review and approval from her medical device sales consultant. >> Notified pt's dtr/Cheri, dcp to [facility]. Dtr is agreeable with the POC. CM will update her once there is acceptance and possible transfer today.
[2019-10-10] MEDS: INSULIN LISPRO SLIDING SCALE 100 UNITS/ML VIAL (humaLOG) SUBCUT PRN ×2 (12:33→20:42)
--- NOTE | 2019-10-10 13:00 | NUR ---
DIET. SUPERVISED PT AT LUNCH TIME, SHE HAD FEW SAMPLES OF COD AND MASHED POTATOES, AND LITTLE BIT OF PUDDING.
[2019-10-10] MEDS: 0.45% NACL 1,000 ML IV SCH (14:01)
--- NOTE | 2019-10-10 14:45 | NUR ---
Dietitian Recommendations * Recommend cardiac, CCHO, pureed diet (Glucerna TID comes standard w/ this diet; provides 660 kcal/day, 30 gm protein/day) * Encourage increase PO intakes LP, RD Please refer to Nutrition Assessment for details. Addendum: 10/10/19 at [address] Amended: Links added.
--- NOTE | 2019-10-10 14:59 | NUR ---
Discharge Planning: DCP received message pt from [facility] (p [phone]) pt accepted to [facility] # to report ([phone]) Rm 212A. Transportation arranged with [facility] ([phone]) 7:30pm P/U nurse made aware, patient packet taken to nurse station.
[2019-10-10 16:00] VITALS: BP_SYST 132
--- NOTE | 2019-10-10 19:00 | NUR ---
REPORT. PHONED [facility], AND REPORT GIVEN TO BRIGETTE PT WILL BE TRANSFERRED TO TELEMETRY UNIT, ROOM 212-A.
--- NOTE | 2019-10-10 19:01 | NUR ---
FAMILY. SPOKE TO DAUGHTER DAVID OF TRANSFER ORDER TO [facility], AND CONSENT WAS GIVEN.
[2019-10-10 20:14] VITALS: BP_SYST 131
[2019-10-10 20:28] VITALS: BP_SYST 155
--- NOTE | 2019-10-10 20:41 | NUR ---
Ambulance update Received incoming call from Richard @ [facility] ambulance. He said there is a delay and new ETA is 45 minutes.
[2019-10-10 20:56] VITALS: BP_SYST 131
--- NOTE | 2019-10-10 21:50 | NUR ---
PT TRANSFERRED Report given by ZULAY Au of day shift to Ruby. Transfer packet with Transfer Orders and Medication Reconciliation form given to EMT with report. Exitcare provided. [facility] ID band removed, replaced with ID band with pt's name and . IV catheter intact and flushed with normal saline. All belongings sent with patient. Patient left floor via gurney escorted by EMT in no distress.
== END 2019-10-10 21:50 | DRG 689 ==
LOC: SED 19:32 → STU 23:07
PROVIDERS: ADMIT Internal Medicine; ATTEND Internal Medicine
DX: N39.0 Urinary tract infection, site not specified (principal); J18.9 Pneumonia, unspecified organism; Z16.24 Resistance to multiple antibiotics; E44.0 Moderate protein-calorie malnutrition; E03.9 Hypothyroidism, unspecified; E11.9 Type 2 diabetes mellitus without complications; F02.80 Dementia in other diseases classified elsewhere, unspecified severity, without behavioral disturbance, psychotic disturbance, mood disturbance, and anxiety; B96.20 Unspecified Escherichia coli [E. coli] as the cause of diseases classified elsewhere; G30.9 Alzheimer's disease, unspecified; I10 Essential (primary) hypertension; E86.0 Dehydration; K21.9 Gastro-esophageal reflux disease without esophagitis; Z88.0 Allergy status to penicillin; Z79.899 Other long term (current) drug therapy
CPT/HCPCS: 36415; 71045; 80053; 81000-TC; 82962; 83605; 83880; 85025; 87040-TC; 87081; 87086; 87186-TC; 93005; 99285; C9113; G0378; J0278; J1956; J2185; J2405; J7060; J7131